=== PATIENT | male | born 1970 | race Caucasian/White ===

== ENCOUNTER 2016-11-27 17:21 | Emergency (ER) | payer OTHER ==
--- NOTE | 2016-11-27 17:48 | ER Document Report ---
ED Medical Screen (RME) - General Chief Complaint: L leg pain/ swelling Stated Complaint: LEFT LEG PAIN, SWELLING Time Seen by Provider: 11/27/16 17:26 Mode of Arrival: Ambulatory Information source: Patient TRAVEL OUTSIDE OF THE [place] IN LAST 30 DAYS: No - HPI Patient complains to provider of: Left calf swelling and pain Onset: Last week Quality of pain: Achy, Fullness, Pressure Severity: Moderate Pain Level: 3 Associated Symptoms: None Exacerbated by: Movement, Walking Relieved by: Denies Similar symptoms previously: Yes Recently seen / treated by doctor: Yes Notes: 11/27/16 17:48 Patient is a 45-year-old male who presents to the emergency room complaining of left calf swelling and pain that started sometime last week, last Sunday he was seen by his orthopedic surgeon and had a Synvisc injection performed, symptoms started shortly thereafter, patient has a history of a DVT in this leg , not currently on anticoagulation - Related Data Allergies/Adverse Reactions: No Known Allergies Allergy (Verified 05/01/16 15:05) Past Medical History - Social History Chew tobacco use (# tins/day): No Frequency of alcohol use: None Drug Abuse: None - Past Medical History Cardiac Medical History: Reports: Hx Atrial Fibrillation, Hx Congestive Heart Failure Pulmonary Medical History: Reports: Hx Bronchitis Renal/ Medical History: Denies: Hx Peritoneal Dialysis Past Surgical History: Reports: Hx Orthopedic Surgery - right big toe - Immunizations Hx Diphtheria, Pertussis, Tetanus Vaccination: No Physical Exam - Vital signs Vitals: Temp Pulse Resp BP Pulse Ox 99.5 F 124 H 20 162/108 H 97 11/27/16 17:28 11/27/16 17:28 11/27/16 17:28 11/27/16 17:28 11/27/16 17:28 Course - Vital Signs Vital signs: Temp Pulse Resp BP Pulse Ox 99.5 F 124 H 20 162/108 H 97 11/27/16 17:28 11/27/16 17:28 11/27/16 17:28 11/27/16 17:28 11/27/16 17:28
--- NOTE | 2016-11-27 18:32 | ER Document Report ---
ED Extremity Problem, Lower - General Chief Complaint: L leg pain/ swelling Stated Complaint: LEFT LEG PAIN, SWELLING Time Seen by Provider: 11/27/16 17:26 Mode of Arrival: Ambulatory Notes: The patient is a 45-year-old male, PMHx DVT 4 years ago (not on any anticoagulation anymore), Factor V Leiden, A fib, OA, who presents with 2 days of left lower extremity pain and swelling. He had Synvisc injections into both knees done last week by his orthopedist at [facility]. His orthopedic doctor called into the ER about concern for DVT and states that he will see the patient tomorrow. Patient denies shortness of breath, cough, chest pain, nausea , vomiting, back pain, fevers, numbness, tingling or difficulty walking. TRAVEL OUTSIDE OF THE [place] IN LAST 30 DAYS: No - Related Data Allergies/Adverse Reactions: No Known Allergies Allergy (Verified 05/01/16 15:05) Past Medical History - General Information source: Patient - Social History Smoking Status: Never Smoker Chew tobacco use (# tins/day): No Frequency of alcohol use: None Drug Abuse: None Family History: Reviewed & Not Pertinent - Past Medical History Cardiac Medical History: Reports: Hx Atrial Fibrillation, Hx Congestive Heart Failure Pulmonary Medical History: Reports: Hx Bronchitis Renal/ Medical History: Denies: Hx Peritoneal Dialysis Past Surgical History: Reports: Hx Orthopedic Surgery - right big toe - Immunizations Hx Diphtheria, Pertussis, Tetanus Vaccination: No Review of Systems - Review of Systems Notes: REVIEW OF SYSTEMS: CONSTITUTIONAL: -fevers, -chills EENT: -eye pain, -difficulty swallowing, -nasal congestion CARDIOVASCULAR:-chest pain, -syncope. RESPIRATORY: -cough, -SOB GASTROINTESTINAL: -abdominal pain, - nausea, -vomiting, -diarrhea GENITOURINARY: -dysuria, -hematuria MUSCULOSKELETAL: +left lower extremity pain and swelling, -back pain, -neck pain SKIN: -rash or skin lesions. HEMATOLOGIC: -easy bruising or bleeding. LYMPHATIC: -swollen, enlarged glands. NEUROLOGICAL: -altered mental status or loss of consciousness, -headache, - neurologic symptoms PSYCHIATRIC: -anxiety, -depression. ALL OTHER SYSTEMS REVIEWED AND NEGATIVE. Physical Exam - Vital signs Vitals: Temp Pulse Resp BP Pulse Ox 99.5 F 124 H 20 162/108 H 97 11/27/16 17:28 11/27/16 17:28 11/27/16 17:28 11/27/16 17:28 11/27/16 17:28 - Notes Notes: PHYSICAL EXAMINATION: GENERAL: Well-appearing, well-nourished and in no acute distress. HEAD: Atraumatic, normocephalic. EYES: Pupils equal round and reactive to light, extraocular movements intact, sclera anicteric, conjunctiva are normal. ENT: nares patent, oropharynx clear without exudates. Moist mucous membranes. NECK: Normal range of motion, supple without lymphadenopathy LUNGS: Breath sounds clear to auscultation bilaterally and equal. No wheezes rales or rhonchi. HEART: Regular rate and rhythm without murmurs ABDOMEN: Soft, nontender, normoactive bowel sounds. No guarding, no rebound. No masses appreciated. EXTREMITIES: Swelling and tenderness of left popliteal region, strong distal pulses, normal range of motion. No cyanosis. NEUROLOGICAL: Cranial nerves grossly intact. Normal speech, normal gait. Normal sensory and motor exams. PSYCH: Normal mood, normal affect. SKIN: Warm, Dry, normal turgor, no rashes or lesions noted. Course - Re-evaluation Re-evalutation: Patient with left popliteal DVT. No shortness of breath or chest pain to suggest PE. His initial tachycardia on triage resolved on my evaluation. His heart rate was 82 by palpation and regular. He said that he was feeling anxious when he arrived to the ER and that his tachycardia may have been from that. Patient was on Xarelto multiple years ago with resolution of his PE. Will restart his Xarelto and have him follow-up with his primary care physician at the [facility]. Told him that he may need lifelong anticoagulation due to his factor V Leiden and two episodes of DVTs. - Vital Signs Vital signs: Temp Pulse Resp BP Pulse Ox 99.5 F 101 H 16 152/87 H 97 11/27/16 17:28 11/27/16 19:58 11/27/16 19:58 11/27/16 19:58 11/27/16 19:58 - Diagnostic Test Radiology reviewed: Image reviewed, Reports reviewed Radiology results interpreted by me: DVT US: Left popliteal DVT Discharge - Discharge Clinical Impression: DVT of popliteal vein Qualifiers: Chronicity: acute Laterality: left Qualified Code(s): I82.432 - Acute embolism and thrombosis of left popliteal vein Condition: Stable Disposition: HOME, SELF-CARE Additional Instructions: You have a left popliteal DVT. Begin the Xarelto as directed. You must follow- up with your primary care physician at the [facility] to discuss further management and treatment options. Return to the ER if you have shortness of breath, chest pain or you have any heavy bleeding. DVT Outpatient Treatment You have deep venous thrombosis (DVT) in your leg. DVT or phlebitis is blood clots within the large deep veins. This causes redness, warmth, and tenderness of the involved area. This problem is more likely to affect people who smoke, take estrogen, have had recent surgery, have been immobile, have had previous DVT, or who have serious underlying health conditions. Keep your legs elevated. A heating pad, 20 minutes every two hours, can help with leg pain. For now, keep walking to a minimum. Don't do any physical work, lifting, or exercise. If the doctor has recommended medication for you, it 's important that you take it. You will be started on a blood-thinning medication. Follow-up is important. Your medication needs to be monitored. Call or return at once if you cough blood or vomit blood, pass black or bloody stool, or have any other unusual bleeding. DVT can cause serious complications. The clots can damage the valves in the veins, leading to chronic pain and swelling. If a clot breaks loose and floats upstream, it can stick in the lungs. A clot in the lungs, called pulmonary embolism, can be life-threatening. Call the doctor or return if you develop increasing leg pain and swelling, leg discoloration, fever, chest pain, or shortness of breath. Prescriptions: Rivaroxaban [Xarelto 15 mg Tablet] 15 mg PO BID 21 Days Referrals: ONEL STERN MD [ACTIVE STAFF] - Follow up as needed
[2016-11-27] MEDS ORDERED: RIVAROXABAN 15 MG TABLET PO ONE ×2 (18:45→19:46)
--- NOTE | 2016-11-27 19:09 | XCELERA REPORT ---
[address] [address] Lower Extremity Venous Evaluation Name: ALAN HORN JR Age: 45 yrs Gender: Male : 1970 Patient Status: Emergency Patient Location: ER Study Date: 11/27/2016 05:57 PM Procedure: Color flow and duplex imaging of the veins of the left lower extremity as well as the right Common Femoral vein. Reason For Study: left leg pain, recent surgery Ordering Physician: JOHANNA WEISS Performed By: Francisco Pugh Right Sided Venous Evaluation The right common femoral vein is fully compressible. Spontaneous and phasic flow is present in the right common femoral vein. Left Sided Venous Evaluation Abnormal vessel filling wall to wall, no compression and no Colour flow in the Popliteal vein. Otherwise normal to the infrageniculate veins. Critical Findings Discusse with Dr Kaur at about 1900. Interpretation Summary Deep venous thrombosis noted in the left Popliteal vein. : JOHANNA WEISS > Jhonatan Esquivel
[2016-11-27 19:59] VITALS: BP 152/87
== END 2016-11-27 19:58 | disposition home or self-care (01) ==
LOC: ER 17:21
DX: I82.432 Acute embolism and thrombosis of left popliteal vein (principal); D68.51 Activated protein C resistance; M19.90 Unspecified osteoarthritis, unspecified site; Z98.890 Other specified postprocedural states; F41.9 Anxiety disorder, unspecified; R00.0 Tachycardia, unspecified; Z86.711 Personal history of pulmonary embolism
CPT/HCPCS: 93971; 99283

== ENCOUNTER 2017-05-18 12:35 | Emergency (ER) | payer OTHER ==
[2017-05-18 12:44] VITALS: BP 149/85
[2017-05-18] MEDS ORDERED: ASPIRIN 81 MG TABLET, CHEWABLE PO ONE (13:59)
--- NOTE | 2017-05-18 14:04 | ER Document Report ---
ED Medical Screen (RME) - General Mode of Arrival: Ambulatory Information source: Patient TRAVEL OUTSIDE OF THE [place] IN LAST 30 DAYS: No <VERA MCINTYRE - Last Filed: 05/18/17 14:01> <JAMAAL OWENS - Last Filed: 05/18/17 21:00> - General Chief Complaint: Cough Stated Complaint: COUGH,CONGESTION,RIB PAIN Time Seen by Provider: 05/18/17 13:54 Notes: 46-year-old male with previous since 2 substernal and right-sided chest pain he states off and on for a week with sinus congestion. He states he is having right-sided rib pain as well as substernal. He states he has had a recently. His pulse ox is 94 respirations 84 temp 98.4 blood pressure 149/85. Lungs are clear to auscultations bilaterally. Will start cardiac workup and have seen by another provider. I have greeted and performed a rapid initial assessment of this patient. A comprehensive ED assessment and evaluation of the patient, analysis of test results and completion of medical decision making process will be conducted by an additional ED providers. (VERA MCINTYRE) - Related Data Allergies/Adverse Reactions: No Known Allergies Allergy (Verified 05/18/17 12:39) Past Medical History - Social History Frequency of alcohol use: None Drug Abuse: None - Past Medical History Cardiac Medical History: Reports: Hx Atrial Fibrillation, Hx Congestive Heart Failure Pulmonary Medical History: Reports: Hx Bronchitis Renal/ Medical History: Denies: Hx Peritoneal Dialysis Past Surgical History: Reports: Hx Orthopedic Surgery - right big toe - Immunizations Hx Diphtheria, Pertussis, Tetanus Vaccination: No <VERA MCINTYRE - Last Filed: 05/18/17 14:01> - Vital signs Vitals: Temp Pulse Resp BP Pulse Ox 98.4 F 84 16 149/85 H 94 05/18/17 12:44 05/18/17 12:44 05/18/17 12:44 05/18/17 12:44 05/18/17 12:44 Course - Laboratory Result Diagrams: 05/18/17 14:31 05/18/17 14:31 <JAMAAL OWENS - Last Filed: 05/18/17 21:00> - Vital Signs Vital signs: Temp Pulse Resp BP Pulse Ox 98.4 F 84 16 149/85 H 94 12/01/17 12:44 05/18/17 12:44 05/18/17 12:44 05/18/17 12:44 05/18/17 12:44 - Laboratory Laboratory results interpreted by me: 05/18/17 05/18/17 14:31 14:31 Monocytes % 14.7 H Direct Bilirubin 0.5 H Creatine Kinase 786 H Doctor's Discharge <VERA MCINTYRE - Last Filed: 05/18/17 14:01> <JAMAAL OWENS - Last Filed: 05/18/17 21:00> - Discharge Clinical Impression: Acute wheezy bronchitis, Hypertension, Obesity Condition: Stable Disposition: HOME, SELF-CARE Additional Instructions: Bronchitis with Bronchospasm (Wheezing) You have bronchitis with bronchospasm (wheezing). Sometimes people develop wheezing with a chest cold. This occurs either because of an underlying tendency toward asthma or because the virus itself irritates the bronchial tubes. This irritation causes cough, shortness of breath, and wheezing. Emergency treatment of bronchospasm may include adrenaline shots or bronchodilator aerosol. You may feel lightheaded and have a rapid pulse for an hour or two. Rest and get plenty of fluids. At home, we'll treat you with a bronchodilator inhaler. Corticosteroids may be required for some patients. Until you recover, avoid chemical fumes, dusts, pollens, and exercising in very cold or dry air. If you smoke, stop now! Most cases of bronchitis get better without antibiotics. If your symptoms do not improve in the next 3 days then start taking her antibiotics. Increase your fluid intake. A cool mist humidifier may make your lungs more comfortable. An expectorant (cough medicine that loosens phlegm) can help. Repeated episodes of bronchitis and bronchospasm may result in lung damage -- for example, chronic bronchitis, recurrent pneumonias, or emphysema. If you develop a fever, increased wheezing, chest pain, or severe shortness of breath, you should contact the doctor immediately. Prescriptions: Benzonatate [Tessalon Perles 100 mg Capsule] 100 mg PO Q8HP PRN #40 capsule PRN Reason: Amoxicillin/Potassium Clav [Augmentin 500-125 Tablet] 1 each PO BID #14 tablet Prednisone 60 mg PO DAILY #12 tablet Forms: Elevated Blood Pressure Referrals: MELINA SANDHU MD [ACTIVE STAFF] - Follow up in 1 week
--- NOTE | 2017-05-18 14:39 | RADIOLOGY REPORT (SQ) ---
EXAM DESCRIPTION: CHEST PA/LAT COMPLETED DATE/TIME: 05/18/2017 2:21 pm REASON FOR STUDY: cough chest pain COMPARISON: 07/08/2013. EXAM PARAMETERS: NUMBER OF VIEWS: two views TECHNIQUE: Digital Frontal and Lateral radiographic views of the chest acquired. RADIATION DOSE: NA LIMITATIONS: none FINDINGS: LUNGS AND PLEURA: No opacities, masses or pneumothorax. No pleural effusion. MEDIASTINUM AND HILAR STRUCTURES: No masses or contour abnormalities. HEART AND VASCULAR STRUCTURES: Heart normal size. No evidence for failure. BONES: No acute findings. HARDWARE: None in the chest. OTHER: No other significant finding. IMPRESSION: NO SIGNIFICANT RADIOGRAPHIC FINDING IN THE CHEST. TECHNICAL DOCUMENTATION: JOB ID: [id number] [employer]- All Rights Reserved
[2017-05-18 14:45] LABS: ABSOLUTE EOSINOPHILS # (AUTO) 0.2 10^3/uL (0.0-0.6); ABSOLUTE LYMPHOCYTES (AUTO) 1.6 10^3/uL (0.5-4.7); ABSOLUTE MONOCYTES (AUTO) 1.2 10^3/uL (0.1-1.4); ABSOLUTE NEUT (AUTO) 4.9 10^3/uL (1.7-8.2); BASOPHILS % (AUTO) 0.6 % (0-2); EOSINOPHILS % (AUTO) 2.3 % (0-6); HEMATOCRIT 42.6 % (37.9-51.0); HEMOGLOBIN 14.5 g/dL (13.5-17.0); HGB HCT DIFFERENCE 0.9; LYMPHOCYTES % (AUTO) 20.4 % (13-45); MEAN CORPUSCULAR HEMOGLOBIN 30.1 pg (27.0-33.4); MEAN CORPUSCULAR HGB CONC 34.1 g/dL (32.0-36.0); MEAN CORPUSCULAR VOLUME 88 fl (80-97); MONOCYTES % (AUTO) 14.7 % (3-13); RED BLOOD COUNT 4.82 10^6/uL (4.35-5.55); RED CELL DISTRIBUTION WIDTH 13.2 % (11.5-14.0); WHITE BLOOD COUNT 7.8 10^3/uL (4.0-10.5)
[2017-05-18 15:05] LABS: ALANINE AMINOTRANSFERASE 50 U/L (21-72); ALBUMIN 4.2 g/dL (3.5-5.0); ALKALINE PHOSPHATASE 51 U/L (38-126); ANION GAP 13 (5-19); ASPARTATE AMINO TRANSFERASE 36 U/L (17-59); BILIRUBIN,DIRECT 0.5 mg/dL (0.0-0.4); BILIRUBIN,TOTAL 1.2 mg/dL (0.2-1.3); BLOOD UREA NITROGEN 15 mg/dL (7-20); CALCIUM 8.8 mg/dL (8.4-10.2); CARBON DIOXIDE 29 mmol/L (22-30); CHLORIDE 101 mmol/L (98-107); CREATINE KINASE 786 U/L (55-170); CREATININE RESULT 1.23 mg/dL (0.52-1.25); GLUCOSE 95 mg/dL (75-110); POTASSIUM 4.3 mmol/L (3.6-5.0); SODIUM 142.9 mmol/L (137-145); TOTAL PROTEIN 6.8 g/dL (6.3-8.2)
[2017-05-18 15:17] LABS: CREATINE KINASE MB 1.13 ng/mL (<4.55)
[2017-05-18 15:18] LABS: TROPONIN I < 0.012 ng/mL
[2017-05-18] MEDS ORDERED: BENZONATATE 100 MG CAPSULE PO ONE (16:46)
[2017-05-18] MEDS ORDERED: ALBUTEROL SULFATE HFA (90 MCG/PUFF) 200 PUFF/8.5 GM MDI IH ONE (16:46)
[2017-05-18] MEDS ORDERED: PREDNISONE 20 MG TABLET PO ONE (16:46)
--- NOTE | 2017-05-18 16:52 | ER Document Report ---
ED General <SHIRLEY NELSON - Last Filed: 05/18/17 18:11> - General Mode of Arrival: Ambulatory TRAVEL OUTSIDE OF THE [place] IN LAST 30 DAYS: No <DEMOND MARSHALL - Last Filed: 05/18/17 22:32> - General Chief Complaint: Cough Stated Complaint: COUGH,CONGESTION,RIB PAIN Time Seen by Provider: 05/18/17 13:54 Notes: Patient is a 46 year old male presenting to the emergency room complaining of a productive cough with yellow/clear and right sided rib pain onset 1 and a half weeks ago. Patient states that he also has some wheezing that is exacerbated when supine. Patient states that he believes he cracked his ribs due to the excessive coughing. Patient denies any nausea, vomiting, or diarrhea. (SHIRLEY NELSON) - Related Data Allergies/Adverse Reactions: No Known Allergies Allergy (Verified 05/18/17 12:39) Past Medical History - General Information source: Patient - Social History Smoking Status: Former Smoker <SHIRLEY NELSON - Last Filed: 05/18/17 18:11> - General Information source: Patient - Social History Smoking Status: Former Smoker Frequency of alcohol use: None Drug Abuse: None Family History: Reviewed & Not Pertinent Patient has suicidal ideation: No Patient has homicidal ideation: No - Past Medical History Cardiac Medical History: Reports: Hx Atrial Fibrillation, Hx Congestive Heart Failure Pulmonary Medical History: Reports: Hx Bronchitis Renal/ Medical History: Denies: Hx Peritoneal Dialysis Past Surgical History: Reports: Hx Orthopedic Surgery - right big toe - Immunizations Hx Diphtheria, Pertussis, Tetanus Vaccination: No <DEMOND MARSHALL - Last Filed: 05/18/17 22:32> Review of Systems - Review of Systems Constitutional: No symptoms reported EENT: See HPI, Nose congestion Cardiovascular: No symptoms reported Respiratory: See HPI, Cough, Sputum Gastrointestinal: No symptoms reported Genitourinary: No symptoms reported Male Genitourinary: No symptoms reported Musculoskeletal: See HPI, Other - right sided rib pain Skin: No symptoms reported Hematologic/Lymphatic: No symptoms reported Neurological/Psychological: No symptoms reported -: Yes All other systems reviewed and negative <SHIRLEY NELSON - Last Filed: 05/18/17 18:11> Physical Exam <SHIRLEY NELSON - Last Filed: 05/18/17 18:11> <DEMOND MARSHALL - Last Filed: 05/18/17 22:32> - Vital signs Vitals: Temp Pulse Resp BP Pulse Ox 98.4 F 84 16 149/85 H 94 05/18/17 12:44 05/18/17 12:44 05/18/17 12:44 05/18/17 12:44 05/18/17 12:44 - Notes Notes: GENERAL: Alert, interacts well. No acute distress. HEAD: Normocephalic, atraumatic. EYES: Pupils equal, round, and reactive to light. Extraocular movements intact. ENT: Oral mucosa moist, tongue midline. NECK: Full range of motion. Supple. Trachea midline. LUNGS: Clear to auscultation bilaterally, no wheezes, rales, or rhonchi. No respiratory distress. HEART: Dry cough. Regular rate and rhythm. No murmurs, gallops, or rubs. ABDOMEN: Soft, non-tender. Non-distended. Bowel sounds present in all 4 quadrants. Obese. EXTREMITIES: Moves all 4 extremities spontaneously. No edema, radial and dorsalis pedis pulses 2/4 bilaterally. No cyanosis. NEUROLOGICAL: Alert and oriented x3. Normal speech. PSYCH: Normal affect, normal mood. SKIN: Warm, dry, normal turgor. No rashes or lesions noted. (SHIRLEY NELSON) Course - Laboratory Result Diagrams: 05/18/17 14:31 05/18/17 14:31 <SHIRLEY NELSON - Last Filed: 05/18/17 18:11> - Laboratory Result Diagrams: 05/18/17 14:31 05/18/17 14:31 <DEMOND MARSHALL - Last Filed: 05/18/17 22:32> - Re-evaluation Re-evalutation: 05/18/17 16:47 CBC unremarkable although he does have a slight monocytosis at 14.7, CMP unremarkable, CK somewhat elevated but this is consistent with his body habitus , cardiac enzymes otherwise negative, chest x-ray is unremarkable per radiology and as reviewed by me. No evidence of CHF or pneumonia. Physical exam is also not indicative of a rib fracture as he has no tenderness to palpation across his ribs. Discussed with patient that his EKG is nonischemic, the fact that he has pain on coughing only and not otherwise points away from acute coronary syndrome. At this time patient will be treated with cough suppressants, steroids and albuterol. He will be sent home with prescription for antibiotics but he should not fill it unless he is having no improvement in 3 days. Patient will return for worsening shortness of breath, increased chest pain or any new or concerning symptoms. (DEMOND MARSHALL) - Vital Signs Vital signs: Temp Pulse Resp BP Pulse Ox 98.4 F 84 16 149/85 H 94 05/18/17 12:44 05/18/17 12:44 05/18/17 12:44 05/18/17 12:44 05/18/17 12:44 - Laboratory Laboratory results interpreted by me: 05/18/17 05/18/17 14:31 14:31 Monocytes % 14.7 H Direct Bilirubin 0.5 H Creatine Kinase 786 H - EKG Interpretation by Me Additional EKG results interpreted by me: 05/18/17 16:50 EKG shows sinus rhythm at a rate of 80, left axis deviation, normal intervals, no ST segment elevation or depression, no T-wave inversions per my interpretation. (DEMOND MARSHALL) Discharge <SHIRLEY NELSON - Last Filed: 05/18/17 18:11> <DEMOND MARSHALL - Last Filed: 05/18/17 22:32> - Discharge Clinical Impression: Acute wheezy bronchitis Hypertension Qualifiers: Hypertension type: essential hypertension Qualified Code(s): I10 - Essential ( primary) hypertension Obesity Qualifiers: Obesity type: unspecified obesity type Obesity classification: adult class 3 ( BMI >= 40) Serious obesity comorbidity presence: with serious comorbidity Body mass index: BMI 40.0-44.9 Qualified Code(s): E66.9 - Obesity, unspecified Condition: Stable Disposition: HOME, SELF-CARE Additional Instructions: Bronchitis with Bronchospasm (Wheezing) You have bronchitis with bronchospasm (wheezing). Sometimes people develop wheezing with a chest cold. This occurs either because of an underlying tendency toward asthma or because the virus itself irritates the bronchial tubes. This irritation causes cough, shortness of breath, and wheezing. Emergency treatment of bronchospasm may include adrenaline shots or bronchodilator aerosol. You may feel lightheaded and have a rapid pulse for an hour or two. Rest and get plenty of fluids. At home, we'll treat you with a bronchodilator inhaler. Corticosteroids may be required for some patients. Until you recover, avoid chemical fumes, dusts, pollens, and exercising in very cold or dry air. If you smoke, stop now! Most cases of bronchitis get better without antibiotics. If your symptoms do not improve in the next 3 days then start taking her antibiotics. Increase your fluid intake. A cool mist humidifier may make your lungs more comfortable. An expectorant (cough medicine that loosens phlegm) can help. Repeated episodes of bronchitis and bronchospasm may result in lung damage -- for example, chronic bronchitis, recurrent pneumonias, or emphysema. If you develop a fever, increased wheezing, chest pain, or severe shortness of breath, you should contact the doctor immediately. Prescriptions: Benzonatate [Tessalon Perles 100 mg Capsule] 100 mg PO Q8HP PRN #40 capsule PRN Reason: Amoxicillin/Potassium Clav [Augmentin 500-125 Tablet] 1 each PO BID #14 tablet Prednisone 60 mg PO DAILY #12 tablet Forms: Elevated Blood Pressure Referrals: MELINA SANDHU MD [ACTIVE STAFF] - Follow up in 1 week Scribe Attestation: 05/18/17 22:31 I personally performed the services described in the documentation, reviewed and edited the documentation which was dictated to the scribe in my presence, and it accurately records my words and actions. (DEMOND MARSHALL) Scribe Documentation - Scribe Written by Ernesto:: Ernesto Hernandez, 05/18/2017 17:37 acting as scribe for :: Tariq <SHIRLEY NELSON - Last Filed: 05/18/17 18:11>
--- NOTE | 2017-05-19 20:58 | EKG REPORT ---
SEVERITY:- NORMAL ECG - SINUS RHYTHM : Confirmed by: Reese Lim MD 18-May-2017 19:54:30
== END 2017-05-18 17:20 | disposition home or self-care (01) ==
LOC: ER 12:35
DX: J20.9 Acute bronchitis, unspecified (principal); E66.9 Obesity, unspecified; I48.91 Unspecified atrial fibrillation; I50.9 Heart failure, unspecified; Z68.41 Body mass index [BMI] 40.0-44.9, adult; Z87.891 Personal history of nicotine dependence
CPT/HCPCS: 93005; 99284; 36415; 82553; 82550; 85025; 80053; 84484; 71020; 93010; J7512; J3490

== ENCOUNTER 2020-01-28 15:10 | Emergency (ER) | payer OTHER ==
--- NOTE | 2020-01-28 15:43 | ER Document Report ---
HPI - HPI Time Seen by Provider: 01/28/20 15:42 Notes: 49-year-old male presents to the emergency room for left knee pain after he was doing yard work yesterday, slipped on wet grass and fell on his left knee. Denies any head trauma or change in level consciousness. 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 Patient has not tried any [id number] medications. Reports pain on medial aspect of knee. Unable to bear full weight. Denies fevers, chills, chest pain,palpitations, shortness of breath, dyspnea, nausea, vomiting, diarrhea, abdominal pain, hematuria,blurred vision, double vision, loss of vision, speech changes, LH, dizziness, syncope, headaches, wheezing, ST, URI, neck pain, weakness, bowel or bladder dysfunction, saddle anesthesia, numbness or tingling in bilateral upper or lower extremities equally, muscle paralysis, weakness in bilateral upper or lower extremities equally or rash. Denies IV drug use. MEDICATIONS: I agree with the patient medications as charted by the RN. ALLERGIES: I agree with the allergies as charted by the RN. PAST MEDICAL HISTORY/PAST SURGICAL HISTORY: Reviewed and agree as charted by RN. SOCIAL HISTORY: Reviewed and agree as charted by RN. FAMILY HISTORY: No significant familial comorbid conditions directly related to patient complaint EXAM: Reviewed vital signs as charted by RN. REVIEW OF SYSTEMS:reviewed vital signs by RN CONSTITUTIONAL : Denies fever, chills, or sweats. Denies recent illness. EENT: Denies eye, ear, throat, or mouth pain or symptoms. Denies nasal or sinus congestion or discharge. Denies throat, tongue, or mouth swelling or difficulty swallowing. CARDIOVASCULAR: Denies chest pain. Denies palpitations or racing or irregular heart beat. Denies ankle edema. RESPIRATORY: Denies cough, cold, or chest congestion. Denies shortness of breath, difficulty breathing, or wheezing. GASTROINTESTINAL: Denies abdominal pain or distention. Denies nausea, vomiting, or diarrhea. Denies blood in vomitus, stools, or per rectum. Denies black, tarry stools. Denies constipation. GENITOURINARY: Denies difficulty urinating, painful urination, burning, frequency, blood in urine, or discharge. MUSCULOSKELETAL: Reports left knee pain. denies back or neck pain or stiffness. Denies joint pain or swelling. SKIN: Denies rash, lesions or sores. HEMATOLOGIC : Denies easy bruising or bleeding. LYMPHATIC: Denies swollen, enlarged glands. NEUROLOGICAL: Denies confusion or altered mental status. Denies passing out or loss of consciousness. Denies dizziness or lightheadedness. Denies headache. Denies weakness or paralysis or loss of use of either side. Denies problems with gait or speech. Denies sensory loss, numbness, or tingling. Denies seizures. PSYCHIATRIC: Denies anxiety or stress. Denies depression, suicidal ideation, or homicidal ideation. ALL OTHER SYSTEMS REVIEWED AND NEGATIVE. Dictation was performed using [employer] voice recognition software PHYSICAL EXAMINATION: GENERAL: Well-appearing, well-nourished and in no acute distress. HEAD: Atraumatic, normocephalic. EYES: Pupils equal round and reactive to light, extraocular movements intact, sclera anicteric, conjunctiva are normal. ENT: Nares patent, oropharynx clear without exudates. Moist mucous membranes. NECK: Normal range of motion, supple without lymphadenopathy LUNGS: Breath sounds clear to auscultation bilaterally and equal. No wheezes rales or rhonchi. HEART: Regular rate and rhythm without murmurs ABDOMEN: Soft, nontender, nondistended abdomen. No guarding, no rebound. No masses appreciated. Musculoskeletal: Normal range of motion, no pitting or edema. No cyanosis. leftknee pain with palpation to medial aspect of knee with noted swelling. negative jarret's sign. anterior and posterior drawer test negative. noted pain with inversion. Dtr + 2 in BLE. Full motor and sensory function to BLE equally. No open wounds. No induration or drainage. Strength 5 out of 5 bilaterally equally. Ankle examination normal. Squeeze test negative. Hip examination normal. Pulses + 2 bilaterally and equally.negative squeeze bilaterally and equally. NEUROLOGICAL: Cranial nerves grossly intact. Normal speech, normal gait. Normal sensory, motor exams PSYCH: Normal mood, normal affect. SKIN: Warm, Dry, normal turgor, no rashes or lesions noted. - REPRODUCTIVE Reproductive: DENIES: : Past Medical History - General Information source: Patient - Social History Smoking Status: Unknown if Ever Smoked Family History: Reviewed & Not Pertinent - Past Medical History Cardiac Medical History: Reports: Hx Atrial Fibrillation, Hx Congestive Heart Failure Pulmonary Medical History: Reports: Hx Bronchitis Renal/ Medical History: Denies: Hx Peritoneal Dialysis Past Surgical History: Reports: Hx Orthopedic Surgery - right big toe - Immunizations Hx Diphtheria, Pertussis, Tetanus Vaccination: No Vertical Provider Document - CONSTITUTIONAL Agree With Documented VS: Yes Exam Limitations: No Limitations General Appearance: WD/WN - INFECTION CONTROL TRAVEL OUTSIDE OF THE [place] IN LAST 30 DAYS: No Course - Re-evaluation Re-evalutation: 01/28/20 15:48 Afebrile vital stable no distress. Nurses notes reviewed. X-ray shows negative for any acute fracture dislocation or foreign body. Patient refused Hurt six pack. Patient given knee immobilizer, Garth bandage and crutches for sprain to left knee. Will give a Hurt sixpack due to pain. Advised to also to continue taking his Xarelto for his right thigh DVT. Advised to follow-up with assistance specialist and primary care provider for further evaluation within the next 24 to [address], drink or operate heavy machinery while taking medication because sedation or impairment of cognitive function. After performing a Medical Screening Examination, I estimate there is LOW risk for OPEN FRACTURE, COMPARTMENT SYNDROME, DEEP VENOUS THROMBOSIS, ACUTE TENDON RUPTURE, or NEUROVASCULAR INJURY thus I consider the discharge disposition reasonable. I have reevaluated this patient multiple times and no significant life threatening changes are noted. The patient and I have discussed the diagnosis and risks, and we agree with discharging home to closely follow-up wit h their primary doctor or the referral orthopedist with the understanding that symptoms and presentations can change. We also discussed returning to the Emergency Department immediately if new or worsening symptoms occur. We have discussed the symptoms which are most concerning (e.g., changing or worsening pain, numbness, weakness) that necessitate immediate return 01/28/20 16:26 - Vital Signs Vital signs: Temp Pulse Resp BP Pulse Ox 98.4 F 72 18 142/86 H 96 01/28/20 15:35 01/28/20 15:35 01/28/20 15:35 01/28/20 15:35 01/28/20 15:35 Discharge - Discharge Clinical Impression: Left knee pain Qualifiers: Chronicity: acute Qualified Code(s): M25.562 - Pain in left knee Condition: Stable Disposition: HOME, SELF-CARE Instructions: Use of Crutches ([facility]), Knee Exercise Program ([facility]), Knee Immobilizing Splint ([facility]), Sprained Knee ([facility]) Additional Instructions: Your x-ray today was negative for any acute fractures. It is advised that you follow-up with assistance specialist within the next 24 to 48 hours. Wear wear knee immobilizer, Garth bandage and crutches as directed. Do not drive, drink or operate heavy machinery while taking Hurt as can cause sedation or impairment of cognitive function. Alternate between Tylenol and ibuprofen for pain control. Apply heat 20 minutes on 20 minutes off several times a day Return immediately for any new or worsening symptoms. Follow up with primary care provider, call tomorrow to make followup appointment. Prescriptions: Methocarbamol [Robaxin 500 mg Tablet] 500 mg PO QID PRN #15 tablet PRN Reason: Referrals: LUCIANA MORALES MD [COMMUNITY BASED STAFF] - Follow up as needed NATHALIE LINDA JR, DO [ACTIVE PROVISIONAL STAFF] - Follow up as needed
[2020-01-28] MEDS ORDERED: HYDROCODONE/ACETAMINOPHEN 5-325 MG (6 TAB/ER DISP) PO PRN (15:44)
--- NOTE | 2020-01-28 16:29 | RADIOLOGY REPORT (SQ) ---
EXAM DESCRIPTION: KNEE LEFT 4 VIEW IMAGES COMPLETED DATE/TIME: 01/28/2020 4:16 pm REASON FOR STUDY: L medial knee pain after falling x 1 day ago COMPARISON: None. NUMBER OF VIEWS: Four views. TECHNIQUE: AP, lateral, and both oblique radiographic images acquired of the left knee. LIMITATIONS: None. FINDINGS: MINERALIZATION: Normal. BONES: No acute fracture or dislocation. No worrisome bone lesions. JOINT: No effusion. SOFT TISSUES: No soft tissue swelling. No radio-opaque foreign body. OTHER: No other significant finding. IMPRESSION: NEGATIVE STUDY OF THE LEFT KNEE. NO RADIOGRAPHIC EVIDENCE OF ACUTE INJURY. TECHNICAL DOCUMENTATION: JOB ID: [id number] 2010 [employer]- All Rights Reserved Reading location - IP/workstation name: [email or web address]
[2020-01-28 17:07] VITALS: BP 157/101
[2020-01-28] MEDS ORDERED: ACETAMINOPHEN 325 MG TABLET PO ONE (17:07)
== END 2020-01-28 17:31 | disposition home or self-care (01) ==
LOC: ER 15:10
DX: M25.562 Pain in left knee (principal); M79.89 Other specified soft tissue disorders; W01.0XXA Fall on same level from slipping, tripping and stumbling without subsequent striking against object, initial encounter
CPT/HCPCS: 99283